=== PATIENT | female | born 1975 | race Caucasian/White ===

== ENCOUNTER 2018-11-29 21:41 | Emergency (ER) | payer SELFPAY ==
[~2018-11-29] VITALS: Ht 175.3 cm; Wt 120.5 kg
[2018-11-29 21:48] VITALS: TEMP 97.9
[2018-11-30 00:54] VITALS: BP 171/89; PULSE 81
== END 2018-11-30 00:52 | disposition home or self-care (01) ==
LOC: COL.ER 21:41
DX: S63.501A Unspecified sprain of right wrist, initial encounter (principal); Z98.51 Tubal ligation status; Z90.49 Acquired absence of other specified parts of digestive tract; X50.0XXA Overexertion from strenuous movement or load, initial encounter; Y92.009 Unspecified place in unspecified non-institutional (private) residence as the place of occurrence of the external cause